=== PATIENT | male | born 1945 | race Caucasian/White ===

== ENCOUNTER 2020-09-21 07:52 | Outpatient (CLI) | payer MEDICARE, OTHER ==
--- NOTE | 2020-09-21 10:42 | MRI ---
MRI BRAIN WITH AND WITHOUT IV CONTRAST: Date: 09/21/2020 HISTORY: Senile degeneration of the brain. Memory loss. FINDINGS: There are multiple foci of T2 prolongation in the periventricular white matter consistent with chroni c small vessel ischemic disease. There is cortical atrophy. The ventricular size is appropriate and t he basilar cisterns are patent. No restricted diffusion is seen. No evidence of infarct, hemorrhage, mass, midline shift, or abnormal extra-axial fluid collections are seen. No abnormal postcontrast enhancement is noted. There is muco bird disease in the paranasal sinuses and fluid in the right mastoid air cells. IMPRESSION: Chronic changes. No evidence of acute intracranial process or mass. POS: AH
== END 2020-09-21 07:53 | disposition home or self-care (01) ==
LOC: SCSMRI 07:52
PROVIDERS: ATTEND Psychiatry & Neurology Neurology
DX: G31.1 Senile degeneration of brain, not elsewhere classified (principal)
CPT/HCPCS: 70553; 82565

== ENCOUNTER 2022-04-15 16:47 | Inpatient (IN) | payer MEDICARE, OTHER ==
[~2022-04-15 16:47] MED LIST: Iopamidol-370 76% 500 ML 1 ML ONE
[2022-04-15 17:12] LABS: #Eosinphils 0.1 thou/uL (0.0-0.7); #Lymphocytes 1.2 thou/uL (1.20-3.40); #Monocytes 0.4 thou/uL (0.11-0.59); #Neutrophils 3.7 thou/uL (1.40-6.50); %Basophils 0.4 % (0.0-1.0); %Eosinophils 1.6 % (0.0-10.0); %Lymphocytes 21.8 % (21.0-51.0); %Monocytes 7.8 % (0.0-10.0); %Neutrophils 68.5 % (42.0-75.0); Hemoglobin 13.7 g/dL (14.0-18.0); Mean Corpuscular HGB CONC 32.8 g/dL (32.0-36.0); Mean Corpuscular Hemoglobin 30.7 pg (27.0-31.0); Mean Corpuscular Volume 93.6 fL (78.0-98.0); Mean Platelet Volume 7.7 fL (7.4-10.4); Platelet Count 208 thou/uL (130-400); RBC Distribution Width 13.9 % (11.5-14.5); Red Blood Cell (RBC) Count 4.46 mill/uL (4.70-6.10); White Blood Cell (WBC) Count 5.4 thou/uL (4.8-10.8)
[2022-04-15 17:31] LABS: ALT (SGPT) 11 U/L (8-55); AST (SGOT) 15 U/L (5-34); Albumin 4.1 g/dL (3.4-4.8); Alkaline Phosphatase 86 U/L (40-110); Anion Gap 11 mmol/L (10-20); BUN (Urea Nitrogen) 25 mg/dL (8.4-25.7); Bilirubin, Total 0.6 mg/dL (0.2-1.2); Calc. Creatinine Clearance 0 mL/min (70-130); Calcium 9.6 mg/dL (7.8-10.44); Carbon Dioxide 28 mmol/L (23-31); Chloride 101 mmol/L (98-107); Globulin 2.5 g/dL (2.4-3.5); Glucose 272 mg/dL (83-110); Potassium 4.4 mmol/L (3.5-5.1); Protein, Total 6.6 g/dL (5.8-8.1); Sodium 136 mmol/L (136-145)
[2022-04-15] MEDS ORDERED: Acetaminophen 650 MG Suppository PR PRN (21:46)
[2022-04-15] MEDS ORDERED: Ondansetron PF 4 MG/2 ML Vial IVP PRN (21:46)
[2022-04-15] MEDS ORDERED: Ondansetron ODT 4 MG TAB PO PRN (21:46)
[2022-04-15] MEDS ORDERED: Acetaminophen 325 MG TAB PO PRN (21:46)
[2022-04-15] MEDS ORDERED: HumaLOG 300 UNITS/3 ML VIAL SC PRN (21:48)
[2022-04-15] MEDS ORDERED: Dextrose 50% Abboject 50 ML SYRINGE SLOW IVP PRN (21:48)
[2022-04-15] MEDS ORDERED: Dextrose 5% in Water 1,000 ML IV PRN (21:48)
[2022-04-15 22:04] VITALS: BMI 34.4
[2022-04-15] MEDS: Sodium Chloride 0.9% 1,000 ML IV SCH (22:14)
[2022-04-15] MEDS ORDERED: Donepezil HCl 10 MG TAB PO SCH (23:15)
[2022-04-15 23:47] LABS: Hemoglobin 12.9 g/dL (14.0-18.0)
[2022-04-16 02:13] LABS: SARS-CoV-2 PCR by NAA Not Detected (NotDetected)
[2022-04-16 06:24] LABS: #Eosinphils 0.1 thou/uL (0.0-0.7); #Lymphocytes 1.5 thou/uL (1.20-3.40); #Monocytes 0.4 thou/uL (0.11-0.59); #Neutrophils 2.7 thou/uL (1.40-6.50); %Basophils 0.6 % (0.0-1.0); %Eosinophils 2.6 % (0.0-10.0); %Lymphocytes 31.8 % (21.0-51.0); %Monocytes 8.5 % (0.0-10.0); %Neutrophils 56.5 % (42.0-75.0); Hemoglobin 11.4 g/dL (14.0-18.0); Mean Corpuscular Hemoglobin 30.9 pg (27.0-31.0); Mean Corpuscular Volume 93.9 fL (78.0-98.0); Mean Platelet Volume 7.6 fL (7.4-10.4); Platelet Count 181 thou/uL (130-400); Red Blood Cell (RBC) Count 3.68 mill/uL (4.70-6.10); White Blood Cell (WBC) Count 4.8 thou/uL (4.8-10.8)
[2022-04-16 06:42] LABS: Anion Gap 10 mmol/L (10-20); BUN (Urea Nitrogen) 23 mg/dL (8.4-25.7); Calc. Creatinine Clearance 84 mL/min (70-130); Calcium 8.5 mg/dL (7.8-10.44); Carbon Dioxide 26 mmol/L (23-31); Chloride 107 mmol/L (98-107); Glucose 152 mg/dL (83-110); Potassium 3.8 mmol/L (3.5-5.1); Sodium 139 mmol/L (136-145)
[2022-04-16] MEDS: Sodium Chloride 0.9% 1,000 ML IV SCH ×2 (09:20→21:00)
[2022-04-16] MEDS: HumaLOG 300 UNITS/3 ML VIAL SC PRN (12:34)
[2022-04-16 14:39] LABS: Hemoglobin 10.8 g/dL (14.0-18.0)
[2022-04-16] MEDS: Atorvastatin Calcium 20 MG TAB PO SCH (21:04)
[2022-04-16] MEDS: Donepezil HCl 10 MG TAB PO SCH (21:04)
[2022-04-16] MEDS: Tamsulosin HCl 0.4 MG CAP PO SCH (21:04)
[2022-04-17] MEDS: Sodium Chloride 0.9% 1,000 ML IV SCH ×2 (06:06→15:02)
[2022-04-17] MEDS: HumaLOG 300 UNITS/3 ML VIAL SC PRN ×3 (06:07→18:04)
[2022-04-17 07:24] LABS: #Eosinphils 0.1 thou/uL (0.0-0.7); #Lymphocytes 1.1 thou/uL (1.20-3.40); #Monocytes 0.3 thou/uL (0.11-0.59); #Neutrophils 3.1 thou/uL (1.40-6.50); %Basophils 0.7 % (0.0-1.0); %Eosinophils 1.9 % (0.0-10.0); %Lymphocytes 24.2 % (21.0-51.0); %Monocytes 5.5 % (0.0-10.0); %Neutrophils 67.8 % (42.0-75.0); Mean Corpuscular HGB CONC 32.5 g/dL (32.0-36.0); Mean Corpuscular Hemoglobin 30.8 pg (27.0-31.0); Mean Corpuscular Volume 94.7 fL (78.0-98.0); Platelet Count 164 thou/uL (130-400); Red Blood Cell (RBC) Count 3.25 mill/uL (4.70-6.10); White Blood Cell (WBC) Count 4.6 thou/uL (4.8-10.8)
[2022-04-17] MEDS: Lisinopril 2.5 MG TAB PO SCH (08:09)
[2022-04-17 08:52] LABS: Chloride 108 mmol/L (98-107); Potassium 4.5 mmol/L (3.5-5.1); Sodium 139 mmol/L (136-145)
[2022-04-17 08:53] LABS: Calcium 8.8 mg/dL (7.8-10.44); Glucose 179 mg/dL (83-110)
[2022-04-17 08:54] LABS: Carbon Dioxide 24 mmol/L (23-31)
[2022-04-17 08:55] LABS: Anion Gap 12 mmol/L (10-20)
[2022-04-17 08:57] LABS: BUN (Urea Nitrogen) 15 mg/dL (8.4-25.7); Calc. Creatinine Clearance 85 mL/min (70-130)
[2022-04-17] MEDS ORDERED: GoLYTELY 4,000 ml Bottle PO SCH (18:45)
[2022-04-17 19:13] LABS: Hemoglobin 9.6 g/dL (14.0-18.0)
[2022-04-17] MEDS: Tamsulosin HCl 0.4 MG CAP PO SCH (21:52)
[2022-04-17] MEDS: Donepezil HCl 10 MG TAB PO SCH (21:52)
[2022-04-17] MEDS: Atorvastatin Calcium 20 MG TAB PO SCH (21:53)
[2022-04-17] MEDS: Melatonin 3 MG TAB PO SCH (21:53)
[2022-04-18] MEDS ORDERED: PROPOFOL 200 MG/20 ML VIAL ONE (09:03)
[2022-04-18] MEDS ORDERED: PHENYLEPHRINE-NS 100 MCG/ML 10 ML SYRINGE ONE (09:03)
[2022-04-18] MEDS ORDERED: ePHEDrine 50 MG/ML VIAL ONE (09:03)
[2022-04-18] MEDS ORDERED: Lidocaine 1% PF 5 ML VIAL ONE (09:03)
[2022-04-18] MEDS: Lisinopril 2.5 MG TAB PO SCH (10:33)
[2022-04-18 11:37] LABS: #Eosinphils 0.1 thou/uL (0.0-0.7); #Lymphocytes 0.9 thou/uL (1.20-3.40); #Monocytes 0.4 thou/uL (0.11-0.59); #Neutrophils 2.8 thou/uL (1.40-6.50); %Basophils 0.2 % (0.0-1.0); %Eosinophils 2.4 % (0.0-10.0); %Monocytes 8.6 % (0.0-10.0); %Neutrophils 67.7 % (42.0-75.0); Hemoglobin 9.3 g/dL (14.0-18.0); Mean Corpuscular HGB CONC 33.1 g/dL (32.0-36.0); Mean Corpuscular Volume 93.5 fL (78.0-98.0); Mean Platelet Volume 7.8 fL (7.4-10.4); Platelet Count 161 thou/uL (130-400); RBC Distribution Width 13.9 % (11.5-14.5); White Blood Cell (WBC) Count 4.2 thou/uL (4.8-10.8)
[2022-04-18 11:53] LABS: Anion Gap 13 mmol/L (10-20); BUN (Urea Nitrogen) 11 mg/dL (8.4-25.7); Calc. Creatinine Clearance 84 mL/min (70-130); Calcium 8.6 mg/dL (7.8-10.44); Carbon Dioxide 24 mmol/L (23-31); Chloride 105 mmol/L (98-107); Glucose 193 mg/dL (83-110); Potassium 3.4 mmol/L (3.5-5.1); Sodium 139 mmol/L (136-145)
[2022-04-18] MEDS: HumaLOG 300 UNITS/3 ML VIAL SC PRN ×2 (12:25→17:06)
[2022-04-18] MEDS: Donepezil HCl 10 MG TAB PO SCH (20:50)
[2022-04-18] MEDS: Atorvastatin Calcium 20 MG TAB PO SCH (20:50)
[2022-04-18] MEDS: Tamsulosin HCl 0.4 MG CAP PO SCH (20:50)
[2022-04-18] MEDS: Melatonin 3 MG TAB PO SCH (22:32)
[2022-04-19 05:57] LABS: #Eosinphils 0.1 thou/uL (0.0-0.7); #Monocytes 0.4 thou/uL (0.11-0.59); #Neutrophils 3.3 thou/uL (1.40-6.50); %Basophils 0.3 % (0.0-1.0); %Eosinophils 1.8 % (0.0-10.0); %Lymphocytes 21.5 % (21.0-51.0); %Monocytes 7.6 % (0.0-10.0); %Neutrophils 68.8 % (42.0-75.0); Mean Corpuscular HGB CONC 33.5 g/dL (32.0-36.0); Mean Corpuscular Hemoglobin 31.4 pg (27.0-31.0); Mean Corpuscular Volume 93.7 fL (78.0-98.0); Mean Platelet Volume 7.3 fL (7.4-10.4); Platelet Count 167 thou/uL (130-400); RBC Distribution Width 14.6 % (11.5-14.5); Red Blood Cell (RBC) Count 2.86 mill/uL (4.70-6.10); White Blood Cell (WBC) Count 4.7 thou/uL (4.8-10.8)
[2022-04-19 06:08] LABS: Anion Gap 11 mmol/L (10-20); BUN (Urea Nitrogen) 9 mg/dL (8.4-25.7); Calc. Creatinine Clearance 82 mL/min (70-130); Calcium 8.7 mg/dL (7.8-10.44); Carbon Dioxide 25 mmol/L (23-31); Chloride 105 mmol/L (98-107); Glucose 222 mg/dL (83-110); Potassium 3.6 mmol/L (3.5-5.1); Sodium 137 mmol/L (136-145)
[2022-04-19] MEDS: Lisinopril 2.5 MG TAB PO SCH (08:22)
[2022-04-19 14:30] VITALS: BP 151/60; TEMP 97.7
== END 2022-04-19 14:20 | disposition home or self-care (01) | DRG 378 ==
LOC: ERS 16:47 → INTOOBSV 19:32 → T4-B 19:32 → OBSVTOIN 04-17 14:46
PROVIDERS: ADMIT Internal Medicine; ATTEND Internal Medicine
PROC: 0DJD8ZZ Inspection of Lower Intestinal Tract, Via Natural or Artificial Opening Endoscopic (ICD-10-PCS; principal; 2022-04-18)
DX: K57.31 Diverticulosis of large intestine without perforation or abscess with bleeding (principal); D62 Acute posthemorrhagic anemia; F05 Delirium due to known physiological condition; N17.9 Acute kidney failure, unspecified; Z20.822 Contact with and (suspected) exposure to COVID-19; E11.40 Type 2 diabetes mellitus with diabetic neuropathy, unspecified; F03.90 Unspecified dementia, unspecified severity, without behavioral disturbance, psychotic disturbance, mood disturbance, and anxiety; I25.10 Atherosclerotic heart disease of native coronary artery without angina pectoris; N40.0 Benign prostatic hyperplasia without lower urinary tract symptoms; N18.2 Chronic kidney disease, stage 2 (mild); I12.9 Hypertensive chronic kidney disease with stage 1 through stage 4 chronic kidney disease, or unspecified chronic kidney disease; E11.22 Type 2 diabetes mellitus with diabetic chronic kidney disease; E87.6 Hypokalemia; Z95.1 Presence of aortocoronary bypass graft; Z79.899 Other long term (current) drug therapy; Z79.84 Long term (current) use of oral hypoglycemic drugs
CPT/HCPCS: 36415; 36416; 74177; 80048; 82274; 85025; 96360; 96361; G0378; J1815; J2704; J3490; J7050; Q9967; U0003; U0005

== ENCOUNTER 2023-10-16 21:34 | Emergency (ER) | payer OTHER, MEDICARE | END 2023-10-16 23:41 | disposition home or self-care (01) | LOC: ERS 21:34 | DX: S09.90XA Unspecified injury of head, initial encounter (principal); S00.03XA Contusion of scalp, initial encounter; I10 Essential (primary) hypertension; E11.40 Type 2 diabetes mellitus with diabetic neuropathy, unspecified; F03.90 Unspecified dementia, unspecified severity, without behavioral disturbance, psychotic disturbance, mood disturbance, and anxiety; W54.1XXA Struck by dog, initial encounter; Y93.89 Activity, other specified; Y92.009 Unspecified place in unspecified non-institutional (private) residence as the place of occurrence of the external cause; Z79.84 Long term (current) use of oral hypoglycemic drugs; Z79.899 Other long term (current) drug therapy | CPT/HCPCS: 70450; 72125 ==

== ENCOUNTER 2023-10-29 14:40 | Emergency (ER) | payer OTHER, MEDICARE ==
[2023-10-29 16:21] LABS: #Eosinphils 0.1 thou/uL (0.0-0.7); #Monocytes 0.5 thou/uL (0.11-0.59); #Neutrophils 3.6 thou/uL (1.40-6.50); %Basophils 0.6 % (0.0-1.0); %Eosinophils 1.5 % (0.0-10.0); %Lymphocytes 22.3 % (21.0-51.0); %Monocytes 9.6 % (0.0-10.0); %Neutrophils 65.8 % (42.0-75.0); Hematocrit 39.9 % (42.0-52.0); Hemoglobin 12.4 g/dL (14.0-18.0); Mean Corpuscular HGB CONC 31.1 g/dL (32.0-36.0); Mean Corpuscular Hemoglobin 27.8 pg (27.0-31.0); Mean Corpuscular Volume 89.5 fl (78.0-98.0); Mean Platelet Volume 10.4 fL (7.4-10.4); Platelet Count 174 10x3/uL (130-400); RBC Distribution Width 16.4 % (11.5-14.5); Red Blood Cell (RBC) Count 4.46 mill/uL (4.70-6.10); White Blood Cell (WBC) Count 5.4 10x3/uL (4.8-10.8)
[2023-10-29 16:48] LABS: ALT (SGPT) 14 U/L (8-55); AST (SGOT) 23 U/L (5-34); Albumin 3.8 g/dL (3.4-4.8); Alkaline Phosphatase 69 U/L (40-110); Anion Gap 13 mmol/L (10-20); BUN (Urea Nitrogen) 22 mg/dL (8.4-25.7); Bilirubin, Total 0.6 mg/dL (0.2-1.2); Calc. Creatinine Clearance 0 mL/min (70-130); Calcium 9.4 mg/dL (7.8-10.44); Carbon Dioxide 24 mmol/L (23-31); Chloride 99 mmol/L (98-107); Estimated GFR 57; Globulin 2.5 g/dL (2.4-3.5); Glucose 353 mg/dL (83-110); Potassium 4.2 mmol/L (3.5-5.1); Protein, Total 6.3 g/dL (5.8-8.1); Sodium 132 mmol/L (136-145)
[2023-10-29 16:50] LABS: Bacteria/HPF None Seen HPF (None Seen); Bilirubin Negative (Negative); Blood, Urine Negative (Negative); CAUTI Indications for Culture Alt mental st,lethar; Clarity Clear (Clear); Glucose, Urine (Dipstick) Greater than 1000 mg/dL (Negative); Ketone, Urine Negative (Negative); Leukocyte Negative Leu/uL (Negative); Nitrite Negative (Negative); Protein, Urine (Dipstick) Negative (Neg-Trace); RBC/HPF None Seen HPF (0-3); Specific Gravity, Urine 1.022 (1.002-1.036); Squamous Epithelial 0-3 HPF (0-3); Urobilinogen Normal mg/dL (Less than 2); WBC/HPF 0-3 HPF (0-3)
[2023-10-29 16:50] LABS: Troponin I Less than 0.010 ng/mL (< 0.028)
[2023-10-29 16:52] LABS: Urine Culture Reflex No No
== END 2023-10-29 19:46 | disposition home or self-care (01) ==
LOC: ERS 14:40
DX: S09.90XA Unspecified injury of head, initial encounter (principal); M25.552 Pain in left hip; I10 Essential (primary) hypertension; E11.40 Type 2 diabetes mellitus with diabetic neuropathy, unspecified; Z79.899 Other long term (current) drug therapy; Z79.84 Long term (current) use of oral hypoglycemic drugs; W01.0XXA Fall on same level from slipping, tripping and stumbling without subsequent striking against object, initial encounter
CPT/HCPCS: 36415; 70450; 72125; 72170; 80053; 81001; 84484; 85025; 93005; 94760